=== PATIENT | female | born 1955 | race Caucasian/White ===

== ENCOUNTER → 2019-01-19 | Outpatient (REF) | payer MEDICARE ==
[~2019-01-19] MED LIST: DIP25 PO; FLU20 PO; LEV175 PO; LEV75 PO; LEVO175T37 PO; LOR10 PO; LOR7.5/325 PO; PER PO; PRA20 PO
--- NOTE | 2019-01-19 10:34 | RADIOLOGY IMAGING REPORT ---
[place] [facility] [place] NAME: Yulissa Jimenez : 1955 MR: [id number] V: [id number] EXAM DATE: ORDERING PHYSICIAN: JOHN HIDALGO TECHNOLOGIST: Location: [facility] Patient: Yulissa Jimenez : 1955 Visit/Account:[id number] Date of Sevice: 01/19/2019 AP pelvis, one view, and right hip, one view. HISTORY: Hip pain. COMPARISON: None. Moderate size marginal osteophytes are present in the right hip. Subchondral cysts and mild joint spa ce narrowing are present in both hips. No acute fractures. Phleboliths are present in the true pelvis . The sacroiliac joints are unremarkable. Degenerative changes are present in the lower lumbar spine. IMPRESSION: Moderate bilateral hip osteoarthritis. Report Dictated By: Freedom Nicole MD at 01/19/2019 10:23 AM Report E-Signed By: Freedom Nicole MD at 01/19/2019 10:26 AM WSN:[id number]
== END ==
LOC: RAD 09:20 → EDSTATUS 09:34
PROVIDERS: ATTEND Nurse Practitioner
DX: M16.0 Bilateral primary osteoarthritis of hip (principal)

== ENCOUNTER → 2019-01-22 | Outpatient (REF) ==
--- NOTE | 2019-01-22 16:41 | RADIOLOGY IMAGING REPORT ---
FACILITY: [facility] - [place] PATIENT NAME: Yulissa Jimenez : 1955 MR: [id number] V: [id number] EXAM DATE: ORDERING PHYSICIAN: JOHN HIDALGO TECHNOLOGIST: Location: [facility] Patient: Yulissa Jimenez : 1955 Visit/Account:[id number] Date of Sevice: 01/22/2019 CT ABDOMEN PELVIS W/O CON HISTORY: Right abdominal pain and pannus. TECHNIQUE: CT abdomen and pelvis without intravenous contrast. One of the following dose optimization techniques was utilized in the performance of this exam: Autom ated exposure control; adjustment of the mA and/or kV according to the patient's size; or use of an i terative reconstruction technique. Specific details can be referenced in the facility's radiology C T exam operational policy. CONTRAST: None. COMPARISON: None. FINDINGS: Visualized lung bases: Negative. Hepatobiliary: Gallbladder surgically absent. Spleen: Negative. Adrenals: Negative. Pancreas: Marked fatty replacement. Kidneys/: Nonobstructing 5 mm stone upper pole left kidney. Exophytic simple fluid attenuating 2.0 cm cortical cyst anterior mid left kidney. Uterus and ovaries grossly unremarkable. GI: Stomach grossly unremarkable. Within the lumen of mid to distal small bowel right mid abdomen is a 0.6 cm wide by 2 cm long dense structure within the bowel stream (2/113), nonspecific and presumab ly ingested but currently nonobstructing and without surrounding inflammation. Other smaller similarl y dense foci are present throughout the colon. Cecum mobile, positioned within left lower quadrant at the time of exam. Appendix not visible and potentially surgically absent. No inflammatory changes in the region of cecal tip to otherwise suggest acute appendicitis. Mild left hemicolonic diverticulosi s without evidence of acute diverticulitis. Vessels/spaces/nodes: Mild calcific atherosclerosis. No bulky adenopathy. No free fluid. No free gas . Bones/soft tissues: Very small fat-containing umbilical hernia. In the setting of reported pain natan g patient's right pannus, superficial soft tissues symmetric and unremarkable without inflammation, m ass or other findings identified to explain patient's reported symptoms. Degenerative changes hips, s acroiliac joints and visualized thoracolumbar spine. IMPRESSION: 1. No findings identified to explain patient's reported right abdominal pain and pannus. 2. Chronic and/or benign-appearing changes detailed above. Report Dictated By: Rocky Hammonds MD at 01/22/2019 4:26 PM Report E-Signed By: Rocky Hammonds MD at 01/22/2019 4:34 PM WSN:[id number]
== END ==
LOC: CT 00:25
PROVIDERS: ATTEND Nurse Practitioner
DX: R10.30 Lower abdominal pain, unspecified (principal); I10 Essential (primary) hypertension
CPT/HCPCS: 74176